=== PATIENT | female | born 1985 | race Caucasian/White ===

== ENCOUNTER 2016-10-12 21:04 | Emergency (ER) | payer OTHER ==
[2016-10-12 21:09] VITALS: BP 131/70; PULSE 89; TEMP 98; BMI 38.9
--- NOTE | 2016-10-12 21:41 | PDOC ---
History of Present Illness - General History Source: Patient Exam Limitations: No Limitations - History of Present Illness Initial Comments: 10/12/16 22:16 The patient is a 31 year old approximately 12 weeks female(), with a significant past medical history of ureteral reflux, who presents to the emergency department complaining of vaginal foreign body sensation since earlier this evening. The patient reports she went to shower and during wiping she noticed a vaginal foreign body.The patient denies any rectal or vaginal discharge, pressure, bleeding, or cramping. The patient reports she presented to the ED out of concern, because she has not experienced this during her previous . The patient reports constipation with bowel movements every other day, but denies any abdominal pain, nausea, vomiting, diarrhea, melena, or hematochezia. 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 The patient denies any hematuria, dysuria, frequency, or urgency. The patient denies any fever, chills, cough, headache, or dizziness. The patient denies any recent travel or sick contacts. Allergies: None reported. Past Surgical History: Cholecystectomy, Social History: Non-smoker. Denies alcohol or drug use. 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 <Faheem Morfin - Last Filed: 10/12/16 23:43> - General History Source: Patient Exam Limitations: No Limitations <Marilin Moore - Last Filed: 10/15/16 08:24> - General Chief Complaint: Hemorrhoids Stated Complaint: 12WKS/ Time Seen by Provider: 10/12/16 21:40 Past History <Faheem Morfin - Last Filed: 10/12/16 23:43> - Past Medical History Other medical history: denies - Psycho/Social/Smoking Cessation Hx Suicidal Ideation: No Smoking History: Never smoked <Marilin Moore - Last Filed: 10/15/16 08:24> - Past Medical History Allergies/Adverse Reactions: Allergies Allergy/AdvReac Type Severity Reaction Status Date / Time No Known Allergies Allergy Verified 10/12/16 21:09 Home Medications: Ambulatory Orders Cholecalciferol (Vitamin D3) [Vitamin D3 -] 0 unit PO DAILY 10/12/16 Cyanocobalamin (Vitamin B-12) [Vitamin B12] 0 mcg PO DAILY 10/12/16 Vit Calc,Iron,Folic [ Vitamins] 1 each PO DAILY 10/12/16 Review of Systems - Review of Systems Able to Perform ROS?: Yes Comments:: 10/12/16 22:17 GENERAL/CONSTITUTIONAL: No: fever, chills, weakness, loss of appetite. GASTROINTESTINAL: +constipation No: nausea, vomiting, abdominal cramping, diarrhea, rectal bleeding GENITOURINARY: +Foreign body sensation in vagina. No: vaginal discharge, vaginal bleeding, dysuria, hematuria, frequency, urgency, flank pain. SKIN AND BREASTS: No: lesions, pallor, rash or easy bruising. HEMATOLOGIC/LYMPHATIC: No: anemia, easy bleeding, swelling nodes <Faheem Morfin - Last Filed: 10/12/16 23:43> *Physical Exam - Vital Signs Last Vital Signs Temp Pulse Resp BP Pulse Ox 98 F 89 18 131/70 100 10/12/16 21:06 10/12/16 21:06 10/12/16 21:06 10/12/16 21:06 10/12/16 21:06 - Physical Exam Comments: 10/12/16 22:22 GENERAL: The patient is in no acute distress. LUNGS: Breath sounds equal, clear to auscultation bilaterally. No wheezes, and no crackles. HEART: Regular rate and rhythm, normal S1 and S2 without murmur, rub or gallop. ABDOMEN: Soft, nontender, normoactive bowel sounds. No guarding, no rebound. PELVIC: Prolapsing tissue in the vaginal vault. Nontender, no bleeding, no discharge. SKIN: Warm, Dry, normal turgor, no rashes or lesions noted. <Faheem Morfin - Last Filed: 10/12/16 23:43> - Vital Signs Last Vital Signs Temp Pulse Resp BP Pulse Ox 98 F 89 18 131/70 100 10/12/16 21:06 10/12/16 21:06 10/12/16 21:06 10/12/16 21:06 10/12/16 21:06 <Marilin Moore - Last Filed: 10/15/16 08:24> ED Treatment Course - RADIOLOGY Radiograph Interpretation: 10/12/16 23:44 EXAM: Pelvic US INTERPRETED BY: Dr. Nalaboff REVIEWED BY: Dr. Moore IMPRESSION: Live IUP with estimated age 12 weeks 4 days. Minimal fluid in the cervix could represent blood Nonvisualization of the right ovary. <Faheem Morfin - Last Filed: 10/12/16 23:43> Medical Decision Making - Medical Decision Making 10/12/16 21:41 A portion of this note was documented by scribe services under my direction. I have reviewed the details of the note, within reason, and agree with the documentation with the following case summary and management plan written by me. Nursing documentation reviewed and incorporated into medical decision making 10/12/16 22:25 This is a 31 yo F with no major medical problems approximately 13 weeks presenting to the Er with a complaint of foreign body in the rectum She noticed this today while on the toilet and then again while in the shower Painless She has never had this before States she is not straining (she does have a history of constipation) No abdominal pain or tenderness On examination: No abdominal tenderness to palpation Vaginal vault with prolapsed tissue, I did not see this patient's os (I do not believe this is a uterine prolapse) no bleeding No discharge Non tender Case reviewed with Dr Banegas She recommends an US with evaluation of the cervix Will send to US now 10/12/16 23:29 US demonstrates Single live IUP, 12 weeks 4 days FHR: 150 BPM Cervix 2.4 cm Left ovary visualized, nml Right ovary not visualized 10/12/16 23:35 Case reviewed with on-call labor is Dr. Banegas. She states given patient's ultrasound demonstrates a long and closed cervix, living fetus with good heart beat patient can be discharged home at this time. Patient will need to be followed up in the office this week (pt actually has an appointment in 5 days) Patient is on bed rest, and with pelvic rest until she seen by her primary senior online marketing manager <Marilin Moore - Last Filed: 10/15/16 08:24> *DC/Admit/Observation/Transfer - Attestations Scribe Attestion: 10/12/16 22:15 Documentation prepared by Faheem Morfin, acting as health care / medical job titles for Marilin Moore MD. <Faheem Morfin - Last Filed: 10/12/16 23:43> - Discharge Dispostion Admit: No <Marilin Moore - Last Filed: 10/15/16 08:24> Diagnosis at time of Disposition: Vaginal prolapse - Discharge Dispostion Disposition: HOME Condition at time of disposition: Stable - Patient Instructions Printed Discharge Instructions: DI for Vaginal Prolapse Additional Instructions: Ms Richardson Thank you for coming to the ER today Please review your ultrasound results Please follow up with your Community Service Officer within 2-3 days Please monitor for pain, vaginal bleeding Please return to the ER for any other concerns or complaints - worsening prolapse, difficulty urinating, vaginal bleeding, any other concerns or complaints If you can not be seen by your senior online marketing manager, you can contact Dr Banegas's office and be seen on next week ([phone]) YOU MUST NOT LIFT HEAVY OBJECTS OR PEOPLE until cleared by your Community Service Officer YOU MUST NOT HAVE SEXUAL INTERCOURSE until cleared by your Community Service Officer - Post Discharge Activity Work/School Note: Back to Work
== END 2016-10-12 23:48 | disposition home or self-care (01) ==
LOC: JERFT 21:04 → JER 21:04
DX: O34.81 Maternal care for other abnormalities of pelvic organs, first trimester (principal); Z3A.12 12 weeks gestation of pregnancy
CPT/HCPCS: 76817-TC; 99282-25

== ENCOUNTER 2024-03-07 14:19 | Inpatient (IN) | payer OTHER ==
[2024-03-07] MEDS ORDERED: PANTOPRAZOLE SODIUM 80 MG in SODIUM CHLORIDE 100 ML IVPB SCH (14:53)
[2024-03-07] MEDS ORDERED: PANTOPRAZOLE SODIUM 40 MG/100 ML BAG IVPB ONE (15:15)
[2024-03-07] MEDS ORDERED: ONDANSETRON 4 MG/2 ML VIAL ONE (15:15)
[2024-03-07] MEDS ORDERED: PANTOPRAZOLE SODIUM 40 MG VIAL ONE (15:17)
[2024-03-07] MEDS: SODIUM CHLORIDE 1,000 ML IV STA (15:28)
[2024-03-07] MEDS: PANTOPRAZOLE SODIUM 40 MG VIAL IVPUSH ONE (15:28)
[2024-03-07] MEDS: ONDANSETRON 4 MG/2 ML VIAL IVPUSH ONE (15:28)
[2024-03-07 15:29] LABS: EOS % 0.1 % (0-4.5); HEMATOCRIT 25.4 % (32.4-45.2); HEMOGLOBIN 8.7 GM/dL (10.7-15.3); MCH 38.1 pg (25.7-33.7); MEAN CELL VOLUME 112.1 fl (80-96); MEAN PLT VOLUME 8.1 fl (7.5-11.1); MONO % 8.9 % (3.8-10.2); PLATELET COUNT 151 10^3/uL (134-434); RBC 2.27 M/mm3 (3.60-5.2); RDW 14.3 % (11.6-15.6); WHITE BLOOD COUNT 7.8 K/mm3 (4.0-10.0)
[2024-03-07 15:36] LABS: INR 1.6 (0.83-1.09); PROTHROMBIN TIME (PATIENT) 17.8 SEC (9.7-13.0)
[2024-03-07 15:39] LABS: ACTIVATED PTT 31.4 SECONDS (25.2-36.5)
[2024-03-07 15:46] LABS: POTASSIUM 3.7 mmol/L (3.5-5.1)
[2024-03-07 15:51] LABS: ALBUMIN 2.1 g/dl (3.4-5.0); CALCIUM 7.9 mg/dL (8.5-10.1)
[2024-03-07 15:52] LABS: BLOOD UREA NITROGEN 9.8 mg/dL (7-18)
[2024-03-07 15:54] LABS: CREATININE 0.7 mg/dL (0.55-1.3)
[2024-03-07 15:56] LABS: TOT PROT 5.6 g/dl (6.4-8.2)
[2024-03-07 16:25] LABS: ANISOCYTOSIS 2+; MACROCYTOSIS 3+; TARGET CELLS 1+
[2024-03-07] MEDS: OCTREOTIDE ACETATE 50 MCG/1 ML - 1 ML VIAL IVPUSH ONE (16:35)
[2024-03-07] MEDS: PANTOPRAZOLE SODIUM 160 MG in SODIUM CHLORIDE 290 ML IVPB SCH (16:35)
[2024-03-07] MEDS ORDERED: CEFTRIAXONE 1 GM/50 ML BAG ONE (16:53)
[2024-03-07 17:41] LABS: BILIRUBIN,DIRECT 3.8 mg/dL (0.0-0.2)
[2024-03-07] MEDS: CEFTRIAXONE 1 GM in DEXTROSE 5%-WATER - 100 ML IVPB ONE (17:57)
[2024-03-07] MEDS: LACTATED RINGERS SOLUTION 1,000 ML/1,000 ML INFUS.BAG IV SCH (18:38)
[2024-03-07 18:58] LABS: BASO % 0.5 % (0-2.0); HEMATOCRIT 21.8 % (32.4-45.2); HEMOGLOBIN 7.5 GM/dL (10.7-15.3); LYMPH % 10.4 % (8-40); MCH 38.6 pg (25.7-33.7); MCHC 34.3 g/dl (32.0-36.0); MEAN CELL VOLUME 112.5 fl (80-96); MEAN PLT VOLUME 8.9 fl (7.5-11.1); MONO % 10.5 % (3.8-10.2); NEUT % 78.6 % (42.8-82.8); PLATELET COUNT 132 10^3/uL (134-434); RBC 1.94 M/mm3 (3.60-5.2); RDW 15.1 % (11.6-15.6); WHITE BLOOD COUNT 7.8 K/mm3 (4.0-10.0)
[2024-03-07 19:30] LABS: LACTIC ACID 8.1 mmol/L (0.4-2.0)
[2024-03-07] MEDS ORDERED: LACTATED RINGERS SOLUTION 1,000 ML/1,000 ML INFUS.BAG IV SCH (21:08)
[2024-03-08] MEDS: ONDANSETRON 4 MG/2 ML VIAL IVPUSH ONE (06:28)
[2024-03-08 07:48] LABS: BASO % 0.6 % (0-2.0); EOS % 0.1 % (0-4.5); HEMATOCRIT 21.8 % (32.4-45.2); HEMOGLOBIN 7.7 GM/dL (10.7-15.3); LYMPH % 19.2 % (8-40); MCH 37.3 pg (25.7-33.7); MCHC 35.6 g/dl (32.0-36.0); MEAN CELL VOLUME 104.8 fl (80-96); MEAN PLT VOLUME 8.4 fl (7.5-11.1); MONO % 10.2 % (3.8-10.2); NEUT % 69.9 % (42.8-82.8); PLATELET COUNT 113 10^3/uL (134-434); RBC 2.08 M/mm3 (3.60-5.2); RDW 20.4 % (11.6-15.6); WHITE BLOOD COUNT 7.2 K/mm3 (4.0-10.0)
[2024-03-08 08:00] LABS: CALCIUM 7.8 mg/dL (8.5-10.1)
[2024-03-08 08:01] LABS: BLOOD UREA NITROGEN 12.9 mg/dL (7-18)
[2024-03-08 08:04] LABS: CREATININE 0.6 mg/dL (0.55-1.3)
[2024-03-08 08:11] LABS: INR 1.51 (0.83-1.09); PROTHROMBIN TIME (PATIENT) 17.2 SEC (9.7-13.0)
[2024-03-08 08:35] LABS: BILIRUBIN,TOTAL 5.4 mg/dL (0.2-1); TOT PROT 5.1 g/dl (6.4-8.2)
[2024-03-08] MEDS: PANTOPRAZOLE SODIUM 40 MG VIAL IVPUSH SCH (10:19)
[2024-03-08] MEDS: LACTATED RINGERS SOLUTION 1,000 ML/1,000 ML INFUS.BAG IV SCH (10:19)
[2024-03-09 08:58] LABS: BASO % 0.3 % (0-2.0); EOS % 0.1 % (0-4.5); HEMOGLOBIN 7.1 GM/dL (10.7-15.3); MCH 37.8 pg (25.7-33.7); MCHC 35.7 g/dl (32.0-36.0); MEAN CELL VOLUME 105.9 fl (80-96); MEAN PLT VOLUME 8.6 fl (7.5-11.1); MONO % 8.9 % (3.8-10.2); NEUT % 70.7 % (42.8-82.8); PLATELET COUNT 124 10^3/uL (134-434); RBC 1.89 M/mm3 (3.60-5.2); RDW 20.7 % (11.6-15.6); WHITE BLOOD COUNT 6.2 K/mm3 (4.0-10.0)
[2024-03-09 09:16] LABS: POTASSIUM 3.2 mmol/L (3.5-5.1)
[2024-03-09 09:22] LABS: CALCIUM 8.2 mg/dL (8.5-10.1)
[2024-03-09 09:23] LABS: ALBUMIN 2.1 g/dl (3.4-5.0); BLOOD UREA NITROGEN 15.9 mg/dL (7-18)
[2024-03-09 09:25] LABS: CREATININE 0.7 mg/dL (0.55-1.3)
[2024-03-09 09:26] LABS: BILIRUBIN,TOTAL 6.7 mg/dL (0.2-1)
[2024-03-09] MEDS: LACTATED RINGERS SOLUTION 1,000 ML/1,000 ML INFUS.BAG IV SCH ×2 (10:46→11:00)
[2024-03-09] MEDS: POTASSIUM CHLORIDE TABS 20 MEQ TABLET.ER (FP) PO ONE (10:48)
[2024-03-09] MEDS: FOLIC ACID 1 MG TABLET (FP) PO SCH (10:51)
[2024-03-09] MEDS: THIAMINE 100 MG TABLET PO SCH ×2 (10:51→22:48)
[2024-03-09] MEDS: BISACODYL 5 MG TABLET.DR (FP) PO ONE (16:23)
[2024-03-09] MEDS: PEG 3350/NA SULF BICARB CL/KCL 4000 ML SOLN.RECON PO ONE (17:17)
[2024-03-09 21:06] VITALS: BMI 27.8
[2024-03-09 22:07] LABS: BASO % 0.2 % (0-2.0); EOS % 0.1 % (0-4.5); HEMATOCRIT 25.7 % (32.4-45.2); HEMOGLOBIN 9.2 GM/dL (10.7-15.3); LYMPH % 12.2 % (8-40); MCH 37.1 pg (25.7-33.7); MCHC 35.6 g/dl (32.0-36.0); MEAN CELL VOLUME 104.1 fl (80-96); MEAN PLT VOLUME 8.4 fl (7.5-11.1); MONO % 9.4 % (3.8-10.2); NEUT % 78.1 % (42.8-82.8); PLATELET COUNT 157 10^3/uL (134-434); RBC 2.47 M/mm3 (3.60-5.2); RDW 23.6 % (11.6-15.6); WHITE BLOOD COUNT 10.1 K/mm3 (4.0-10.0)
[2024-03-10 08:24] LABS: BASO % 0.6 % (0-2.0); EOS % 0.1 % (0-4.5); HEMATOCRIT 25.9 % (32.4-45.2); LYMPH % 20.1 % (8-40); MCH 35.9 pg (25.7-33.7); MCHC 34.6 g/dl (32.0-36.0); MEAN CELL VOLUME 103.5 fl (80-96); MEAN PLT VOLUME 8.6 fl (7.5-11.1); MONO % 9.5 % (3.8-10.2); NEUT % 69.7 % (42.8-82.8); PLATELET COUNT 183 10^3/uL (134-434); RDW 23.8 % (11.6-15.6)
[2024-03-10 08:29] LABS: INR 1.56 (0.83-1.09); PROTHROMBIN TIME (PATIENT) 17.7 SEC (9.7-13.0)
[2024-03-10 08:45] LABS: ALBUMIN 2.4 g/dl (3.4-5.0); CALCIUM 8.4 mg/dL (8.5-10.1)
[2024-03-10 08:48] LABS: CREATININE 0.7 mg/dL (0.55-1.3)
[2024-03-10 08:51] LABS: TOT PROT 5.7 g/dl (6.4-8.2)
[2024-03-10] MEDS: KCL 10 MEQ IVPB 10 MEQ/100 ML INFUS.BAG IVPB SCH (09:15)
[2024-03-10] MEDS: THIAMINE HCL 200 MG/2 ML VIAL IVPB SCH (18:35)
[2024-03-11] MEDS: KCL 10 MEQ IVPB 10 MEQ/100 ML INFUS.BAG IVPB SCH (00:06)
[2024-03-11 08:09] LABS: HEMATOCRIT 22.4 % (32.4-45.2); HEMOGLOBIN 7.7 GM/dL (10.7-15.3); MCH 36.2 pg (25.7-33.7); MCHC 34.4 g/dl (32.0-36.0); MEAN CELL VOLUME 105.3 fl (80-96); PLATELET COUNT 136 10^3/uL (134-434); RBC 2.13 M/mm3 (3.60-5.2); RDW 23.4 % (11.6-15.6); WHITE BLOOD COUNT 6.2 K/mm3 (4.0-10.0)
[2024-03-11 08:16] LABS: POTASSIUM 3.2 mmol/L (3.5-5.1)
[2024-03-11 08:24] LABS: BLOOD UREA NITROGEN 12.7 mg/dL (7-18); CALCIUM 7.9 mg/dL (8.5-10.1)
[2024-03-11 08:25] LABS: MAGNESIUM 1.6 mg/dL (1.8-2.4)
[2024-03-11 08:27] LABS: BILIRUBIN,DIRECT 4.9 mg/dL (0.0-0.2); CREATININE 0.6 mg/dL (0.55-1.3); PHOSPHOROUS 2.4 mg/dL (2.5-4.9)
[2024-03-11 08:28] LABS: BILIRUBIN,TOTAL 6.2 mg/dL (0.2-1); TOT PROT 4.8 g/dl (6.4-8.2)
[2024-03-11 08:47] LABS: INR 1.62 (0.83-1.09)
[2024-03-11] MEDS: POTASSIUM CHLORIDE TABS 20 MEQ TABLET.ER (FP) PO ONE (10:00)
[2024-03-11] MEDS: NAPH,MB-DB/K PH,MBDB POWDER PACKET PO ONE (10:00)
[2024-03-11] MEDS: MAGNESIUM 1GM/D5W - 1 GM/100 ML IVPB IVPB ONE (10:00)
[2024-03-11 15:51] LABS: BASO % 0.5 % (0-2.0); EOS % 0.2 % (0-4.5); HEMATOCRIT 22.8 % (32.4-45.2); HEMOGLOBIN 7.9 GM/dL (10.7-15.3); LYMPH % 20.2 % (8-40); MCH 36.3 pg (25.7-33.7); MCHC 34.4 g/dl (32.0-36.0); MEAN CELL VOLUME 105.4 fl (80-96); MEAN PLT VOLUME 8.1 fl (7.5-11.1); MONO % 11.7 % (3.8-10.2); NEUT % 67.4 % (42.8-82.8); PLATELET COUNT 147 10^3/uL (134-434); RBC 2.17 M/mm3 (3.60-5.2); RDW 23.6 % (11.6-15.6); WHITE BLOOD COUNT 6.2 K/mm3 (4.0-10.0)
[2024-03-11 16:16] LABS: POTASSIUM 3.3 mmol/L (3.5-5.1)
[2024-03-11 16:18] LABS: ALBUMIN 1.9 g/dl (3.4-5.0); BLOOD UREA NITROGEN 10.6 mg/dL (7-18); CALCIUM 7.9 mg/dL (8.5-10.1)
[2024-03-11 16:21] LABS: CREATININE 0.6 mg/dL (0.55-1.3)
[2024-03-11 16:23] LABS: BILIRUBIN,TOTAL 6.6 mg/dL (0.2-1); TOT PROT 4.9 g/dl (6.4-8.2)
[2024-03-11 17:44] LABS: ANISOCYTOSIS 2+; MACROCYTOSIS 1+
[2024-03-12 08:12] LABS: BASO % 0.5 % (0-2.0); EOS % 0.4 % (0-4.5); HEMATOCRIT 22.4 % (32.4-45.2); HEMOGLOBIN 7.7 GM/dL (10.7-15.3); LYMPH % 18.2 % (8-40); MCH 36.8 pg (25.7-33.7); MCHC 34.2 g/dl (32.0-36.0); MEAN CELL VOLUME 107.4 fl (80-96); MEAN PLT VOLUME 8.2 fl (7.5-11.1); MONO % 11.3 % (3.8-10.2); NEUT % 69.6 % (42.8-82.8); PLATELET COUNT 150 10^3/uL (134-434); RBC 2.09 M/mm3 (3.60-5.2); WHITE BLOOD COUNT 6.2 K/mm3 (4.0-10.0)
[2024-03-12 08:16] LABS: INR 1.62 (0.83-1.09); PROTHROMBIN TIME (PATIENT) 18.4 SEC (9.7-13.0)
[2024-03-12 08:35] LABS: POTASSIUM 3.5 mmol/L (3.5-5.1)
[2024-03-12 08:41] LABS: BLOOD UREA NITROGEN 7.3 mg/dL (7-18); CALCIUM 7.8 mg/dL (8.5-10.1); MAGNESIUM 1.8 mg/dL (1.8-2.4)
[2024-03-12 08:42] LABS: ALBUMIN 1.9 g/dl (3.4-5.0)
[2024-03-12 08:44] LABS: BILIRUBIN,DIRECT 5.1 mg/dL (0.0-0.2); CREATININE 0.6 mg/dL (0.55-1.3)
[2024-03-12 08:46] LABS: BILIRUBIN,TOTAL 6.7 mg/dL (0.2-1); PHOSPHOROUS 2.7 mg/dL (2.5-4.9); TOT PROT 4.8 g/dl (6.4-8.2)
[2024-03-12 09:48] VITALS: RESP 18
[2024-03-12 13:40] LABS: RETICULOCYTES 8.25 % (0.5-1.5)
[2024-03-12 15:21] VITALS: BP 134/90; PULSE 79; TEMP 98.8
== END 2024-03-12 16:34 | disposition home or self-care (01) | DRG 378 ==
LOC: JER 14:19 → JERBED 17:30 → J4W 23:03
PROVIDERS: ADMIT Internal Medicine; ATTEND Internal Medicine
PROC: 30233N1 Transfusion of Nonautologous Red Blood Cells into Peripheral Vein, Percutaneous Approach (ICD-10-PCS; 2024-03-07)
PROC: 0DJ08ZZ Inspection of Upper Intestinal Tract, Via Natural or Artificial Opening Endoscopic (ICD-10-PCS; principal; 2024-03-07 19:30)
PROC: 0DJD8ZZ Inspection of Lower Intestinal Tract, Via Natural or Artificial Opening Endoscopic (ICD-10-PCS; 2024-03-10)
DX: K92.2 Gastrointestinal hemorrhage, unspecified (principal); D62 Acute posthemorrhagic anemia; R74.01 Elevation of levels of liver transaminase levels; D53.9 Nutritional anemia, unspecified; K70.10 Alcoholic hepatitis without ascites; E80.6 Other disorders of bilirubin metabolism; K21.9 Gastro-esophageal reflux disease without esophagitis; E66.9 Obesity, unspecified; Z68.27 Body mass index [BMI] 27.0-27.9, adult
CPT/HCPCS: 36415; 36430; 71045-TC-FY; 74176-TC; 74181-TC; 76705-TC; 80048; 80053; 80076; 82248; 82525; 82607; 82728; 82746; 83540; 83550; 83605; 83735; 84100; 84439; 84443; 84484; 84703; 85025; 85027; 85045; 85610; 85730; 86705; 86708; 86803; 86850; 86900; 86901; 86922; 87340; 87517; 93005; 93010; 94760; 99285-25; P9058